=== PATIENT | female | born 1955 | race Caucasian/White ===

== ENCOUNTER 2017-01-06 14:47 | Observation (INO) | payer BC ==
[2017-01-06] MEDS ORDERED: PANTOPRAZOLE SODIUM IV 40 MG VIAL IVP ONE (15:51)
--- NOTE | 2017-01-06 15:54 | Emergency Department Record ---
History of Present Illness - General Chief complaint: Nausea, Vomiting, Diarrhea Stated complaint: BLOOD IN STOOL/SENT BY HER DR Time Seen by Provider: 01/06/17 15:45 Source: Patient Mode of Arrival: Ambulatory Limitations: No limitations - History of Present Illness Initial comments: The patient is here due to a one week hx of difficulty swallowing and feeling like food is getting stuck in her esophagus. She denies any CP, SOB, GM, or AP but has had blood in her stool twice this AM. She has no hx of similar problems and did call her PCP who sent her to the ER for admission. MD complaint: Other Onset/Timin -: Days(s) Description of Diarrhea: Blood-streaked Associated Abdominal Pain: No Associated Symptoms: Denies other symptoms - Related Data Home Medications Medication Instructions Recorded Confirmed Last Taken Losartan Potassium [Cozaar] 50 mg PO DAILY 01/06/17 01/06/17 01/06/17 Lovastatin 20 mg PO DAILY 01/06/17 01/06/17 01/06/17 Solifenacin Succinate [Vesicare] 5 mg PO DAILY 01/06/17 01/06/17 01/06/17 Allergies Allergy/AdvReac Type Severity Reaction Status Date / Time Penicillins Allergy SWELLING Verified 01/06/17 15:34 OF THE FACE Travel Screening - Travel/Exposure Within Last 30 Days Have you traveled within the last 30 days?: No - Travel/Exposure Within Last Year Have you traveled outside the [place] in the last year?: No - Additonal Travel Details Have you been exposed to anyone with a communicable illness?: No - Travel Symptoms Symptom Screening: None Review of Systems Constitutional: Denies: Chills, Fever Eyes: Denies: Eye discharge ENT: Denies: Congestion Respiratory: Denies: Cough, Dyspnea Past Medical History - SOCIAL HISTORY Smoking Status: Former smoker Alcohol Use: Occasional Drug Use: None - RESPIRATORY Hx Respiratory Disorders: No - CARDIOVASCULAR Hx Cardio Disorders: Yes Hx Hypertension: Yes (CONTROLLED WITH MEDS) - NEURO Hx Neuro Disorders: No - GI Hx GI Disorders: Yes Hx of Polyps: Yes (COLON, BENIGN) - Hx Genitourinary Disorders: No Hx Bladder Problem: Yes (FREQUENCY) - ENDOCRINE Hx Endocrine Disorders: No - MUSCULOSKELETAL Hx Musculoskeletal Disorders: Yes Hx Arthritis: Yes (OSTEOARTHRITIS IN BACK) - PSYCH Hx Psych Problems: No Hx Anxiety: Yes (OCCASIONAL) - HEMATOLOGY/ONCOLOGY Hx Hematology/Oncology Disorders: No Family Medical History Any Significant Family History?: No Physical Exam - General General Appearance: Alert, Oriented x3, Cooperative, No acute distress - Head Head exam: Atraumatic, Normocephalic, Normal inspection - Eye Eye exam: Normal appearance, PERRL - ENT Throat exam: Normal inspection. negative: Tonsillar erythema, Tonsillar exudate - Neck Neck exam: Normal inspection, Full ROM. negative: Tenderness - Respiratory Respiratory exam: Normal lung sounds bilaterally. negative: Respiratory distress - Cardiovascular Cardiovascular Exam: Regular rate, Normal rhythm, Normal heart sounds - GI/Abdominal GI/Abdominal exam: Soft, Normal bowel sounds. negative: Rebound, Rigid, Tenderness - Rectal Rectal exam: Heme (+) stool. negative: Hemorrhoids - Extremities Extremities exam: Normal inspection, Full ROM, Normal capillary refill. negative: Tenderness Course Vital Signs 01/06/17 15:28 Temperature 98.6 F Pulse Rate [ 105 H Pulse Ox Probe] Respiratory 18 Rate Blood Pressure 163/110 [Left Arm] Pulse Ox 97 - Reevaluation(s) Reevaluation #1: The patient is doing very well at this time. I did discuss the case with Dr. Downing and he would like the patient admitted to the hospital for a scope tomorrow. 01/06/17 16:55 Medical Decision Making - Data Complexity MDM Data: Labs Ordered and/or Reviewed, X-Ray Ordered and/or Reviewed - Lab Data Result diagrams: 01/06/17 16:03 01/06/17 16:03 - Radiology Data Radiology results: Report reviewed (CXR: Neg.) Disposition Disposition: Admit Clinical Impression: GI bleed Qualifiers: GI bleed type/associated pathology: unspecified gastrointestinal hemorrhage type Qualified Code(s): K92.2 - Gastrointestinal hemorrhage, unspecified Disposition: Still a Patient at [facility] Decision to Admit: Admit from ER Decision to Admit Date: 01/06/17 Decision to Admit Time: 16:56 Accepting Physician: Salian Time Discussed w/Accepting Physician: 16:56 Condition: (2) Stable Time of Disposition: 16:56 Quality - Quality Measures Quality Measures: N/A - Blood Pressure Screening View Details: Yes Does Patient Have Any of the Following: Active Dx of HTN Blood Pressure Classification: Hypertensive Reading Systolic Measurement: 151 Diastolic Measurement: 78 Screening for High Blood Pressure: Patient Exclusion, Hx of HTN [H9265]
[2017-01-06 16:14] LABS: BASO % 0.1 % (0-6); LYMPH % 9.7 % (16-45); MEAN CELL VOLUME 89.7 fl (81-97); MEAN CORPUSCULAR HEMOGLOBIN 30.6 pg (27-33); MEAN CORPUSCULAR HGB CONC 34.1 g/dl (32-36); MEAN PLATELET VOLUME 9.5 fl (7.4-10.4); MONO % 0.9 % (0-9); PLATELET COUNT 318 K/uL (130-400); RED BLOOD COUNT 4.57 M/uL (3.80-5.40); RED CELL DISTRIBUTION WIDTH 13.4 % (11.5-14.5)
[2017-01-06] MEDS: SODIUM CHLORIDE 0.9% 500 ML IV ONE ×2 (16:16→16:17)
[2017-01-06 16:27] LABS: INR 0.99; PARTIAL THROMBOPLASTIN TIME 27.4 SECONDS (24.5-39.1); PROTHROMBIN TIME (PATIENT) 10.7 SECONDS (9.5-12.1)
[2017-01-06 16:30] LABS: ALB/GLOB RATIO 1.4 (1.1-1.8); ALBUMIN 4.4 g/dL (4.0-5.0); ALKALINE PHOSPHATASE 74 U/L (35-104); ALT/SGPT 16 U/L (<33); AST/SGOT 20 U/L (10.0-35.0); BLOOD UREA NITROGEN 13 mg/dL (8-23); CREATININE 0.8 mg/dL (0.5-0.9); EST GLOMERULAR FILTRATION RATE > 60 mL/min; GLUCOSE,RANDOM 149 mg/dL (74-109); TOTAL PROTEIN 7.6 g/dL (6.6-8.7)
[2017-01-06] MEDS ORDERED: 0.9 % SODIUM CHLORIDE 1000ML 1,000 ML IV PRN (17:55)
[2017-01-06] MEDS ORDERED: SODSULF/SOD/NAHCO3/KCL/PEG (GOLYTELY) 4000 ML BTL PO PRN (17:58)
[2017-01-07 06:58] LABS: BASO % 0.2 % (0-6); EOS % 1.1 % (0-6); GRAN % 55.7 % (47-80); HEMATOCRIT 37.6 % (35.0-47.0); HEMOGLOBIN 12.3 gm/dl (11.6-16.0); LYMPH % 31.8 % (16-45); MEAN CELL VOLUME 90.6 fl (81-97); MEAN CORPUSCULAR HEMOGLOBIN 29.6 pg (27-33); MEAN CORPUSCULAR HGB CONC 32.7 g/dl (32-36); MEAN PLATELET VOLUME 9.9 fl (7.4-10.4); MONO % 11.2 % (0-9); PLATELET COUNT 277 K/uL (130-400); RED BLOOD COUNT 4.15 M/uL (3.80-5.40); RED CELL DISTRIBUTION WIDTH 13.5 % (11.5-14.5); WHITE BLOOD COUNT W/O DIFF 8.9 K/uL (4.2-12.2)
--- NOTE | 2017-01-07 07:25 | RADIOLOGY REPORT ---
EXAM: CHEST, TWO VIEWS HISTORY: DIFFICULTY SWALLOWING. TECHNIQUE: Two views of the chest were obtained. Comparison: None. FINDINGS: The lungs are clear. The cardiac silhouette, diaphragm, and osseous structures are unremarkable for age. IMPRESSION: NEGATIVE CHEST EXAMINATION. JOB NUMBER: [id number] MTDD
--- NOTE | 2017-01-07 08:31 | History and Physical Report ---
DATE OF EVALUATION: 01/06/2017 DATE OF ADMISSION: 01/07/2017 at 7 a.m. CHIEF COMPLAINT: Dysphagia and rectal bleeding. HISTORY OF THE PRESENT ILLNESS: This 61-year-old female states about 1 week ago, she developed difficulty swallowing having getting food down. She is able to liquid down, but it seems like food is getting stuck in her esophagus. She denies any chest pain, shortness of breath, difficulty breathing, or abdominal pain. She noticed blood in the stool yesterday morning, and she has had no similar problems since then. She went and saw Dr. Pedersen, who then sent her to the ER for evaluation. She has had a colonoscopy by Dr. Rosado in February 2016. PAST MEDICAL HISTORY: Hypertension, hypercholesterolemia. PAST SURGICAL HISTORY: Colonoscopy in February 2016 and 10 years before. Carpal tunnel surgery. MEDICATIONS ON ADMISSION: Losartan 50 mg a day and lovastatin 20 mg a day. She may also be using Vesicare 5 mg daily. ALLERGIES: Penicillin. FAMILY PSYCHOSOCIAL HISTORY: Unremarkable family history. She is a former smoker. No drug use. Occasional alcohol use. REVIEW OF SYSTEMS: HEENT: No upper respiratory infection symptoms, cough, cold, or congestion. Cardiovascular: No chest pain, palpitations, or arrhythmias. Respiratory: No shortness of breath, cough, cold or congestion. Ex-smoker. Gastrointestinal: See Chief Complaint. She has dysphagia and rectal bleeding. No nausea, vomiting or diarrhea. Genitourinary: No dysuria, hematuria, frequency, or burning on urination. She may have hyperactive bladder. Musculoskeletal: No joint or bony abnormalities. Neurologic: No CVA, paralysis, or paresthesias. Gynecologic: No lumps in her breasts or abnormal vaginal bleeding. Endocrine: No diabetes or thyroid disease. Integument: No rash, ulcers, changes in moles, or yellow skin. PHYSICAL EXAMINATION: VITAL SIGNS: Height is 5'6". Weight is 180 pounds. Temperature is 97.6. Pulse is 91. Blood pressure 149/82. Respiratory rate is 20. Pulse ox 98% on room air. HEENT: Pupils equal, round, and reactive to light and accommodation. Extraocular muscles intact. Throat is clear. Nose is clear. Tympanic membranes lane. NECK: Supple. No jugular venous distention. No hepatojugular reflux. No carotid bruits. Thyroid is smooth. CARDIOVASCULAR: Regular rate and rhythm without murmurs, clicks, rubs, or gallops. RESPIRATORY: Clear to auscultation and percussion. ABDOMEN: Soft, nontender, no hepatosplenomegaly. No masses or tenderness. Bowel sounds active. EXTREMITIES: No pitting edema. No cyanosis or clubbing. Full range of motion. Peripheral pulses good. BREASTS: Deferred. GYNECOLOGIC: Deferred. RECTAL: Exam done in the Emergency Department showed Hemoccult-positive stool. GENITALIA: Normal female genitalia. NEUROLOGIC: Cranial nerves II-XII intact. No gross deficits. Sensation normal. Strength normal. Deep tendon reflexes equal bilaterally. Babinski is negative. MENTAL STATUS: Alert and oriented x3. IMPRESSION: 1. Dysphagia. 2. GI bleed. PLAN: GI consult with Dr. Flores. Her morning hemoglobin was 12. Yesterday in the ER, it was 14. MTDD
[2017-01-07] MEDS ORDERED: LOSARTAN POTASSIUM 25 MG TABLET PO SCH (10:00)
[2017-01-07] MEDS ORDERED: FENTANYL PF 100MCG/2ML VIAL IV ONE (14:22)
[2017-01-07] MEDS ORDERED: LIDOCAINE 2% MDV (20MG/ML) 20ML VIAL IV ONE (14:22)
[2017-01-07] MEDS ORDERED: PROPOFOL 10 MG/ML VIAL IV ONE (14:22)
--- NOTE | 2017-01-07 14:51 | Discharge Note ---
VTE H&P Assessment - Risk for VTE Risk for VTE: Yes Risk Level: Very Low Risk Assessment Date: 01/07/17 Risk Assessment Time: 07:00 VTE Orders Placed or Will Be Placed: No VTE Reason for No Prophylaxis: Not Indicated (GI bleed) Discharge Medications - Discharge Medications Prescriptions: Omeprazole Magnesium 20 mg PO DAILY #30 cap. Home Medications: Ambulatory Orders Losartan Potassium [Cozaar] 50 mg PO DAILY 01/06/17 [Last Taken 01/06/17] Lovastatin 20 mg PO DAILY 01/06/17 [Last Taken 01/06/17] Solifenacin Succinate [Vesicare] 5 mg PO DAILY 01/06/17 [Last Taken 01/06/17] Omeprazole Magnesium 20 mg PO DAILY #30 cap. 01/07/17 [Last Taken Unknown] Discharge Note - Date Date of Discharge Note: 01/07/17 Condition: (2) Stable Additional Instructions: follow up with Dr. Pedersen in 5 days maalox after meals and bedtime take omeprazole once a day Forms: Patient Portal Access
[2017-01-07] MEDS ORDERED: PANTOPRAZOLE SODIUM IV 40 MG VIAL IVP SCH (16:00)
--- NOTE | 2017-01-10 07:21 | Medical Records Consult ---
DATE OF CONSULTATION: 01/07/2017 REASON FOR CONSULTATION: GI bleed. HISTORY OF PRESENT ILLNESS: This is a 61-year-old female who presented to the emergency room with complaints of intermittent episodes of pain on swallowing for about a week and blood in the stool for 2 days and diarrhea for 1 day. I have now been asked to evaluate her for possible endoscopy. She denies any heartburn or any fever or any chills. She also denies any nausea or any vomiting. She has had a colonoscopy about a year ago that was noted to have only diverticulosis. Her other past medical history is only significant for hypertension. FAMILY HISTORY: Noncontributory. REVIEW OF SYSTEMS: A 12-point systemic review was done and is documented in her chart. PHYSICAL EXAMINATION: GENERAL: A pleasant female in no apparent distress. VITAL SIGNS: Blood pressure 140/80, heart rate 75, respirations 18. HEENT: She is not pale or jaundiced. Oral mucosa is moist with no ulceration. NECK: Supple. No palpable lymph nodes or thyromegaly. LUNGS: Clear to auscultation bilaterally with no wheezes or rales. HEART: S1, S2. No gallop or murmur. ABDOMEN: Soft, nontender. No palpable mass or organomegaly. Bowel sounds are present. EXTREMITIES: No clubbing, cyanosis, or edema. NEUROLOGIC: She is alert and oriented x3. No focal deficits grossly. LABORATORY DATA: She had a complete blood count initially that showed a hemoglobin of 14 and dropped down to 12.3, otherwise normal indices. IMPRESSION: A 61-year-old female with GI bleed with intermittent episodes of odynophagia, rule out ulcers. PLAN: We will obtain both esophagogastroduodenoscopy and colonoscopy. Further recommendations will be forthcoming upon the results of those. Thank you for allowing me to participate in the care of this patient. CC: Dr. Tl MACEDO
--- NOTE | 2017-01-10 07:21 | Discharge Summary ---
DATE: 01/07/2017 at 2:51 p.m. This is an observation patient. DISCHARGE DIAGNOSES: 1. Acute gastritis documented on EGD by Dr. Flores. 2. Rectal bleeding, negative colonoscopy. 3. Status post hypertension. 4. Status post hypercholesterolemia. ATTENDING PHYSICIAN: Tl Downing DO REASON FOR HOSPITALIZATION: This 61-year-old female was having dysphagia for about [address] Pedersen who set her up for outpatient evaluation by GI; however, the next day she developed rectal bleeding. Sent into the emergency department for evaluation. Evaluated by Dr. Barahona and admitted to the hospital for GI to see and do EGD and colonoscopy. The patient's initial hemoglobin in the ER was 14. The next morning, today, it was 12. Dr. Flores saw the patient. Consultation with Dr. Flores. PROCEDURES DONE: EGD showing gastritis and no problems in the esophagus. Colonoscopy was negative except for, I think, diverticulosis. Formal report will be on the chart. It is a verbal report from Dr. Flores. CONDITION ON DISCHARGE: Improved. DISCHARGE INSTRUCTIONS: Follow up with Dr. Pedersen in 5 days. Omeprazole 20 mg daily, Maalox 30 mL after meals and at bedtime. Continue her home medications of losartan 50 mg a day, lovastatin 20 mg a day. Return to the emergency department if things get worse. MTDD
--- NOTE | 2017-01-10 12:30 | Operative Note ---
DATE OF SURGERY: 01/07/2017 SURGEON: Venkatesh Flores MD OPERATION: 1. ESOPHAGOGASTRODUODENOSCOPY. 2. COLONOSCOPY. INDICATIONS: This is a 61-year-old female with GI bleed and occasional odynophagia who presented for esophagogastroduodenoscopy and colonoscopy. POSTOPERATIVE DIAGNOSES: 1. Normal esophagus with no specific strictures. 2. Diffuse erosive gastritis. 3. Normal duodenum. 4. Left-sided colonic diverticulosis. 5. Otherwise normal colon. ANESTHESIA: Sedation is per Anesthesia. Pulse oximetry was monitored throughout the procedure to maintain O2 saturation of 90% or greater. Supplemental oxygen was administered via nasal cannula. Cardiac and vital signs were monitored throughout the duration of the procedure, and they were stable. The procedures of esophagogastroduodenoscopy and colonoscopy and risks and benefits of the procedures, including the risk of bleeding and perforation, among others, were explained to the patient who voiced understanding and desired to have the procedures done. Physical examination was performed, and the patient was found stable for sedation. PROCEDURE: The patient was placed in the left lateral position. Sedation was initiated. A plastic bite block was inserted into the oral cavity. The Olympus [id number] gastroscope was introduced into the oral cavity and advanced to the proximal esophagus without difficulty. The esophageal mucosa was carefully examined upon introduction of the gastroscope. The proximal, mid, and distal esophageal mucosa appeared normal. The gastroscope was then advanced into the stomach, and surveillance of the stomach revealed diffuse erythema with erosions involving the gastric body and antrum but no ulcers were noted. The gastroscope was then advanced to the descending duodenum without difficulty. The duodenal bulb and descending duodenum appeared normal. The gastroscope was then withdrawn into the stomach and retroflexion was performed. There were no other lesions noted. The gastroscope was then straightened and withdrawn while carefully examining the gastric and esophageal mucosa. No other lesions noted. Multiple duodenal and gastric biopsies were obtained. She remained with stable vital signs and was repositioned for colonoscopy. A digital rectal exam was performed and showed some mild external hemorrhoids with no palpable rectal masses. An Olympus [id number]-180AL colonoscope was then inserted into the rectum under direct visualization. It was advanced to the cecum without difficulty. The ileocecal valve and appendiceal orifice were identified and photographed. The colonic mucosa was carefully examined upon introduction of the colonoscope. There were occasional diverticula noted in the sigmoid and descending and one in the ascending colon. There were no other lesions noted. The ileocecal valve was intubated and the terminal ileum mucosa was inspected for about 5 cm and it appeared normal. The colonoscope was then withdrawn while carefully examining the colonic mucosal surfaces. No other lesions were noted. In the rectum, retroflexion was performed and grade 1 internal hemorrhoids were noted. The colonoscope was then withdrawn and the procedure were terminated. The patient tolerated the procedure well without any immediate complications. He remained with stable vital signs and was transferred to the recovery room. RECOMMENDATIONS: 1. The patient should be on a high-fiber diet. 2. The patient is to have a repeat colonoscopy in about 10 years unless if necessary sooner. Thank you for allowing me to participate in the care of your patient. CC: Dr. Salina MACEDO
== END 2017-01-07 15:15 | disposition home or self-care (01) ==
LOC: ER 14:47 → MEDSURG 17:30
PROVIDERS: ADMIT Emergency Medicine; ATTEND Emergency Medicine
DX: K29.00 Acute gastritis without bleeding (principal); K92.1 Melena; R13.10 Dysphagia, unspecified; I10 Essential (primary) hypertension; E78.00 Pure hypercholesterolemia, unspecified; K57.30 Diverticulosis of large intestine without perforation or abscess without bleeding; K64.4 Residual hemorrhoidal skin tags
CPT/HCPCS: 43239; 45378; 00740; 99285; 96374; 96361; 99284; 85025; 85730; 85610; 80053; 85027; 71020; G0378 ×2; J3010; C9113